=== PATIENT | female | born 1955 | race Caucasian/White ===

== ENCOUNTER 2024-04-10 11:19 | Emergency (ER) | payer OTHER, SELFPAY ==
[2024-04-10 11:30] VITALS: BP 154/90; PULSE 80; RESP 18; TEMP 36.4; O2SAT 97; BMI 51.0
--- NOTE | 2024-04-10 11:39 | ED.BACK ---
HPI - Back Pain/Injury <Monique Mcconnell PA-C - Last Filed: 04/10/24 15:08> General Chief Complaint: Back Pain/Injury Stated Complaint: Chronic Lower R Back/Side Pain Time Seen by Provider: 04/10/24 11:39 Source: patient History of Present Illness HPI Narrative: Ms. Bryant is a pleasant 68-year-old female with a past medical history of cholecystectomy, hypertension, insomnia, chronic low back pain who presents to the emergency department for right flank pain x3 days. Patient is accompanied by her daughter who contributes to the history. Reports that about 3 days ago she started developing sharp, stabbing sudden pain in her right flank occasionally wrapping around the abdomen. States pain is not quite as severe as her prior gallbladder pain but is almost that bad. Reports that she chronically does have low back pain worse on the right side but this pain is much more severe. No injuries. Denies any associated symptoms of chest pain, shortness of breath, fevers, chills, vomiting, dysuria, hematuria. Denies history of any kidney problems or kidney stones. States that she does have slight constipation and gassiness. She took naproxen and Flexeril which normally helps her pain but it did not help this time. While the patient was driving to the ER from [facility], her daughter had the seat warmers on in the car which significantly improved her pain and his gone from a 7/10 to a 2/10. She is also concerned for a possible small lump/abscess on her right upper quadrant of her abdomen that has been there for many months. The only medication she took prior to arrival today was her blood pressure medicine. Related Data Home Medications Medication Instructions Recorded Confirmed Ranitidine Hydrochloride 150 mg PO BID ##0 10/19/12 (RANITIDINE) alprazolam 0.5 mg tablet (Xanax) ##0 10/19/12 CALCIUM CARBONATE (TUMS ) 500 mg PO PRN ##0 10/20/12 OXYMETAZOLINE HCL (Dristan) 1 spray intranasal TID ##0 10/20/12 [MULTI VITAMIN ] 1 tab PO QDAY ##0 10/20/12 albuterol sulfate 90 mcg/actuation 1 puff INH PRN ##0 10/20/12 aerosol inhaler (Proventil HFA) Previous Rx's Medication Instructions Recorded albuterol sulfate 90 mcg/actuation 1 inh inhalation QID PRN shortness 04/10/24 aerosol inhaler of breath or wheezing #6.7 grams Allergies Allergy/AdvReac Type Severity Reaction Status Date / Time pork derived (porcine) AdvReac Mild Nausea Verified 04/10/24 11:35 Review of Systems <Monique Mcconnell PA-C - Last Filed: 04/10/24 15:08> Review of Systems ROS Unobtainable: All systems reviewed & are unremarkable except as noted in HPI and below Patient History <Monique Mcconnell PA-C - Last Filed: 04/10/24 15:08> Social History Smoking Status: Never smoker Smoking Status: Never smoker Exam <Monique Mcconnell PA-C - Last Filed: 04/10/24 15:08> Narrative Exam Narrative: GENERAL: 68 year old patient appears stated age. Obese patient, in no acute distress. HEAD: Atraumatic. Normocephalic. NECK: Trachea midline. Cervical ROM intact. CARDIOVASCULAR: Regular rate and rhythm. RESPIRATORY: ?Nonlabored respirations. ?Speaking in clear, full sentences. ?Clear to auscultation. Breath sounds equal bilaterally. No wheezes, rales, or rhonchi. ? GASTROINTESTINAL: Abdomen protuberant soft, nontender, normal bowel sounds, no rebound or guarding. Prior cholecystectomy scars. Patient reports sensation of lump in right upper quadrant of abdomen. BACK: No midline spinal tenderness. No CVA tenderness or reproducible pain. However subjective pain is located in right CVA region wrapping to groin. NEURO: AOx3. ?Clear speech. ?Moves all 4 extremities appropriately. SKIN: No rash or erythema of visible areas Initial Vital Signs Initial Vital Signs: Vital Signs Temperature 97.6 F 04/10/24 11:30 Pulse Rate 80 04/10/24 11:30 Respiratory Rate 18 04/10/24 11:30 Blood Pressure 154/90 H 04/10/24 11:30 Pulse Oximetry 97 04/10/24 11:30 Oxygen Delivery Method Room Air 04/10/24 11:30 <Naima Rosado MD - Last Filed: 04/10/24 18:25> Initial Vital Signs Initial Vital Signs: Vital Signs Temperature 97.6 F 04/10/24 11:30 Pulse Rate 80 04/10/24 11:30 Respiratory Rate 18 04/10/24 11:30 Blood Pressure 154/90 H 04/10/24 11:30 Pulse Oximetry 97 04/10/24 11:30 Oxygen Delivery Method Room Air 04/10/24 11:30 Course <Monique Mcconnell PA-C - Last Filed: 04/10/24 15:08> Orders Ordered: ED Orders 04/10/24 12:03 CT abdomen pelvis wo con Stat 04/10/24 12:16 Complete Blood Count AUTO DIFF Stat Comprehensive Metabolic Panel Stat Lipase Stat 04/10/24 12:34 Urine Microscopic Stat Discontinued Medications Acetaminophen (Acetaminophen 325 Mg Tablet) 650 mg PO NOW ONE Stop: 04/10/24 12:04 Last Admin: 04/10/24 12:26 Dose: 650 mg Documented By: KARMEN Ketorolac Tromethamine (Ketorolac 30 Mg/Ml Vial) 15 mg IV NOW ONE Stop: 04/10/24 12:04 Last Admin: 04/10/24 12:26 Dose: 15 mg Documented By: KARMEN Vital Signs Vital signs: Vital Signs - 8 hr 04/10/24 11:30 04/10/24 13:58 Temperature 97.6 F Pulse Rate 80 78 Respiratory Rate 18 20 Blood Pressure 154/90 H 178/94 H Pulse Oximetry 97 98 Oxygen Delivery Method Room Air Room Air <Naima Rosado MD - Last Filed: 04/10/24 18:25> Orders Ordered: ED Orders 04/10/24 12:03 CT abdomen pelvis wo con Stat 04/10/24 12:16 Complete Blood Count AUTO DIFF Stat Comprehensive Metabolic Panel Stat Lipase Stat 04/10/24 12:34 Urine Microscopic Stat Discontinued Medications Acetaminophen (Acetaminophen 325 Mg Tablet) 650 mg PO NOW ONE Stop: 04/10/24 12:04 Last Admin: 04/10/24 12:26 Dose: 650 mg Documented By: KARMEN Ketorolac Tromethamine (Ketorolac 30 Mg/Ml Vial) 15 mg IV NOW ONE Stop: 04/10/24 12:04 Last Admin: 04/10/24 12:26 Dose: 15 mg Documented By: KARMEN Vital Signs Vital signs: Vital Signs - 8 hr 04/10/24 11:30 04/10/24 13:58 Temperature 97.6 F Pulse Rate 80 78 Respiratory Rate 18 20 Blood Pressure 154/90 H 178/94 H Pulse Oximetry 97 98 Oxygen Delivery Method Room Air Room Air MDM - Back Pain/Injury <Monique Mcconnell PA-C - Last Filed: 04/10/24 15:08> Medical Records Attestation: I reviewed the patient's medical records. Lab Data 04/10/24 12:16 04/10/24 12:16 Labs: Lab Results 04/10/24 04/10/24 Range/Units 12:16 12:34 WBC 7.4 (4.5-11.0) X10^3/uL RBC 4.97 (4.0-5.2) X10^6/uL Hgb 14.3 (12.0-16.0) g/dL Hct 42.5 (36-46) % MCV 85.5 (80-100) fL MCH 28.8 (26-34) PG MCHC 33.7 (30-36) % RDW 14.0 (11.6-14.8) % Plt Count 415 H (150-400) X10^3/uL Neut % (Auto) 57.2 (50-75) % Lymph % (Auto) 31.5 (25-40) % [place] % (Auto) 6.7 (3-14) % Eos % (Auto) 3.4 (2-4) % Baso % (Auto) 1.2 (0-2) % Neut # (Auto) 4200 (3724-0195) /uL Lymph # (Auto) 2300 (3984-6672) /uL [place] # (Auto) 500 (0-900) /uL Eos # (Auto) 300 (0-450) /uL Baso # (Auto) 100 (0-100) /uL Sodium 136 L (137-145) mmol/L Potassium 4.4 (3.4-5.1) mmol/L Chloride 104 (98-107) mmol/L Carbon Dioxide 28 (22-32) mmol/L BUN 15 (7-17) mg/dL Creatinine 0.75 (0.52-1.04) mg/dL Estimated GFR > 60 (>60) mL/min BUN/Creatinine Ratio 20.0 (6-22) Glucose 119 H (80-110) mg/dL Calcium 8.9 (8.4-10.2) mg/dL Total Bilirubin 0.7 (0.2-1.3) mg/dL AST 34 (14-36) IU/L ALT 30 (<35) IU/L Alkaline Phosphatase 91 (38-126) U/L Total Protein 7.7 (6.3-8.2) g/dL Albumin 4.2 (3.5-5.0) g/dL Globulin 3.5 (1.7-4.1) g/dL Albumin/Globulin Ratio 1.2 (1.0-2.8) Lipase 58 (23-300) U/L Urine RBC 0-1/hpf (0-5/HPF) Urine WBC None seen (0-5/HPF) Ur Squamous Epith Cells 0-1 /hpf (0-5/HPF) Urine Bacteria None seen (None) Ur Culture Indicated? Cult not indicated Vol Urine Centrifuged 10ml (spun) Urine Dip Bedside Urine Glucose Negative Bedside Urine Bilirubin - Negative Bedside Urine Ketone - Negative Urine Specific [place] 1.005 Bedside Urine Occult Blood +/- Bedside Urine pH 6.5 Bedside Urine Protein - Negative Bedside Urine Urobilinogen - Negative Bedside Urine Nitrite - Negative Bedside Urine Leukocytes - Negative Esterase Imaging Data CT scan - abdomen/pelvis: Radiologist's Impression: PROCEDURE: CT ABDOMEN PELVIS WO CON INDICATIONS: Right flank pain; hx cholecystectomy; chronic back pain TECHNIQUE: Axial sections were acquired from the lung bases to the pubic symphysis. Coronal and sagittal reformats were performed. For radiation dose reduction, the following was used: automated exposure control, adjustment of mA and/or kV according to patient size. COMPARISON: None. FINDINGS: Image quality: Diagnostic. Lower Chest: There is bibasilar interlobular septal thickening, ground-glass opacity, and reticulation, left greater than right. There is a small hiatal hernia. URINARY: Right Kidney: No stones or hydronephrosis. Right Ureter: No hydroureter. Left Kidney: No stones or hydronephrosis. Left Ureter: No hydroureter. Bladder: Normal wall thickness. No stones. ABDOMEN: Liver: No contour-deforming solid mass. Gallbladder: Surgically absent. Biliary ducts: No biliary dilation. Pancreas: No ductal dilation. Spleen: Size is within normal limits. Adrenal Glands: No adrenal nodules. Stomach and Bowel: Normal colonic caliber, without significant wall thickening. Peritoneum: No abnormal intraperitoneal fluid. No free air. Ventral Wall: No hernia. Abdominal Nodes: No enlarged retroperitoneal or mesenteric lymph nodes. Vessels: Aorta and inferior vena cava are normal in size. PELVIS: Pelvic Organs: Calcified uterine fibroids are present. Otherwise unremarkable. Pelvic Nodes: Unremarkable. Miscellaneous: No inguinal hernias are seen. The symptom marker at the right upper quadrant overlies the costochondral junction. There is no mass or other abnormality in this area. Bones: Mild degenerative changes of the spine are present. IMPRESSION: No obstructing stones or hydronephrosis. No other CT evidence for the etiology of the patient's symptoms. [facility] Narrative Medical decision making narrative: 68-year-old female with a past medical history of cholecystectomy, hypertension, insomnia, chronic low back pain who presents to the emergency department for right flank pain x3 days. Daughter contributes to history. Differential diagnosis includes but is not limited to nephrolithiasis, ureterolithiasis, UTI, muscle spasm, muscle strain, lumbar degenerative disc disease, etc. On exam patient is in no acute distress, nontoxic appearing, vital signs within normal limits except for mildly elevated BP 154/90. Patient reports 3 days of severe right flank pain wrapping to groin that only just improved after sitting in long car ride with heat warmer on. Physical exam reveals no reproducible abdominal or flank tenderness but subjective flank tenderness. We will proceed with labs to check kidney and liver function in addition to CT abdomen and pelvis without IV contrast to evaluate for possible stone. We will check UA. We will treat pain with Toradol this time. Labs overall reassuring with WBC count 7.4, hemoglobin 14.3, hematocrit 42.5. Platelet count slightly elevated at 415. Sodium 136, glucose 119, normal renal function, potassium 4.4, normal LFTs. Point of care UA negative for infection. Lipase normal 58. CT scan reveals no obstructing stones or hydronephrosis, no other CT evidence for the etiology of the patient's symptoms. Incidental findings of mild degenerative changes of the spine, calcified uterine fibroids, small hiatal hernia,, bibasilar interlobular septal thickening, ground-glass opacity and reticulation left greater than right. Discussed all lab and imaging findings with the patient including all incidental findings, provided patient with printed copy of her CT report. Discussed the importance of PCP follow up specifically regarding changes in the bases of the lungs, patient reports in 2019 she was sick with what she thinks was COVID and has had what she believes is asthma ever since then. Discussed the possibilities of interstitial lung disease, CHF. She has having no cough, fever, flu symptoms, no concern for pneumonia. Patient is asking for a refill of her albuterol inhaler though which I am agreeable to. Overall patient has pain most consistent with musculoskeletal, likely paralumbar muscle spasm as heat therapy relieves pain. We discussed naproxen, acetaminophen, Lidoderm, cyclobenzaprine, heat therapy, gentle stretching. She is all of these prescriptions at home and is not interested in any new prescriptions for her pain. Advised follow up with her PCP early next week and we discussed ER return precautions. Both the patient and her daughter verbalized understanding of all information and are happy with the plan, she is stable for discharge home. <Naima Rosado MD - Last Filed: 04/10/24 18:25> Lab Data Labs: Lab Results 04/10/24 04/10/24 Range/Units 12:16 12:34 WBC 7.4 (4.5-11.0) X10^3/uL RBC 4.97 (4.0-5.2) X10^6/uL Hgb 14.3 (12.0-16.0) g/dL Hct 42.5 (36-46) % MCV 85.5 (80-100) fL MCH 28.8 (26-34) PG MCHC 33.7 (30-36) % RDW 14.0 (11.6-14.8) % Plt Count 415 H (150-400) X10^3/uL Neut % (Auto) 57.2 (50-75) % Lymph % (Auto) 31.5 (25-40) % [place] % (Auto) 6.7 (3-14) % Eos % (Auto) 3.4 (2-4) % Baso % (Auto) 1.2 (0-2) % Neut # (Auto) 4200 (9192-1744) /uL Lymph # (Auto) 2300 (1470-3932) /uL [place] # (Auto) 500 (0-900) /uL Eos # (Auto) 300 (0-450) /uL Baso # (Auto) 100 (0-100) /uL Sodium 136 L (137-145) mmol/L Potassium 4.4 (3.4-5.1) mmol/L Chloride 104 (98-107) mmol/L Carbon Dioxide 28 (22-32) mmol/L BUN 15 (7-17) mg/dL Creatinine 0.75 (0.52-1.04) mg/dL Estimated GFR > 60 (>60) mL/min BUN/Creatinine Ratio 20.0 (6-22) Glucose 119 H (80-110) mg/dL Calcium 8.9 (8.4-10.2) mg/dL Total Bilirubin 0.7 (0.2-1.3) mg/dL AST 34 (14-36) IU/L ALT 30 (<35) IU/L Alkaline Phosphatase 91 (38-126) U/L Total Protein 7.7 (6.3-8.2) g/dL Albumin 4.2 (3.5-5.0) g/dL Globulin 3.5 (1.7-4.1) g/dL Albumin/Globulin Ratio 1.2 (1.0-2.8) Lipase 58 (23-300) U/L Urine RBC 0-1/hpf (0-5/HPF) Urine WBC None seen (0-5/HPF) Ur Squamous Epith Cells 0-1 /hpf (0-5/HPF) Urine Bacteria None seen (None) Ur Culture Indicated? Cult not indicated Vol Urine Centrifuged 10ml (spun) Urine Dip Bedside Urine Glucose Negative Bedside Urine Bilirubin - Negative Bedside Urine Ketone - Negative Urine Specific [place] 1.005 Bedside Urine Occult Blood +/- Bedside Urine pH 6.5 Bedside Urine Protein - Negative Bedside Urine Urobilinogen - Negative Bedside Urine Nitrite - Negative Bedside Urine Leukocytes - Negative Esterase Discharge Plan Departure Patient Disposition: Home Clinical Impression: Hernia, hiatal Strain of lumbar region Qualifiers: Encounter type: initial encounter Qualified Code(s): S39.012A - Strain of muscle, fascia and tendon of lower back, initial encounter DDD (degenerative disc disease), lumbar Qualifiers: Disc-related pain type: discogenic back pain only Qualified Code(s): M51.360 - Other intervertebral disc degeneration, lumbar region with discogenic back pain only Instructions: DI for Low Back Pain Activity Restrictions/Additional Instructions: Dear Ms. Bryant, Your diagnosis today is right paralumbar spinal muscle strain/spasm. We obtained a CBC, CMP, lipase, urine test and a CT scan of your abdomen and pelvis. Your lab work and urine test were overall very reassuring. The CT scan of your abdomen and pelvis revealed mild degenerative changes of the spine, a small hiatal hernia, calcified uterine fibroids, and some congestion in the bases of both of your lungs. There was no kidney stone or problem with your kidneys on imaging. It is very important to follow up with your primary care doctor for further evaluation of your right low back pain in addition to further evaluation of the incidental findings on imaging, especially the chronic changes in your lungs. Please take naproxen 500 mg twice a day with food. Please also take acetaminophen/Tylenol 650 mg every 4-6 hours or 1000 mg every 8 hours. Continue to use the cyclobenzaprine if needed as prescribed. You may also use topical lidocaine patches directly on the area of pain. Use heat therapy or warm compress throughout the day to help loosen up the muscles and do gentle stretching. Avoid sitting or lying still for a prolonged period of time, avoid heavy lifting. If you develop chest pain, difficulty breathing, fevers, chills, bloody urine, severe abdominal pain vomiting or any other concerns return to the ER immediately. Please follow up with your primary care doctor within the next 2-3 days for ER follow-up. (If you do not have a PCP you can call [phone]. ?to schedule an appointment with an [facility] Primary Care Provider) IF YOU DEVELOP ANY NEW OR WORSENING SYMPTOMS, RETURN TO THE ER! Please read the attached instructions, they highlight more specific treatments and interventions for you at home. Thank you for letting me participate in your care, Monique Mcconnell PA-C Prescriptions: New albuterol sulfate 90 mcg/actuation HFA aerosol inhaler 1 inh inhalation QID PRN (Reason: shortness of breath or wheezing) Qty: 6.7 0RF No Action alprazolam [Xanax] 0.5 MG tablet Qty: 0 Ranitidine Hydrochloride (RANITIDINE) 150 mg PO BID Qty: 0 [MULTI VITAMIN ] 1 tab PO QDAY Qty: 0 CALCIUM CARBONATE (TUMS ) 500 mg PO PRN Qty: 0 OXYMETAZOLINE HCL (Dristan) 1 spray Intranasal TID Qty: 0 albuterol sulfate [Proventil HFA] 90 MCG/PUFF HFA aerosol inhaler 1 puff INH PRN Qty: 0 Referrals: Radha Goodrich MD [Primary Care Provider] - Stand Alone Forms: Patient Portal/API/Survey ED Sign-out <Naima Rosado MD - Last Filed: 04/10/24 18:25> Cosign ED Attending Cosheidiature Attestation: I was immediately available in the department for consultation throughout this patient's visit. Naima Rosado MD
--- NOTE | 2024-04-10 12:03 | DI.CT.S_ITS ---
PROCEDURE: CT ABDOMEN PELVIS WO CON INDICATIONS: Right flank pain; hx cholecystectomy; chronic back pain TECHNIQUE: Axial sections were acquired from the lung bases to the pubic symphysis. Coronal and sagittal reformats were performed. For radiation dose reduction, the following was used: automated exposure control, adjustment of mA and/or kV according to patient size. COMPARISON: None. FINDINGS: Image quality: Diagnostic. Lower Chest: There is bibasilar interlobular septal thickening, ground-glass opacity, and reticulation, left greater than right. There is a small hiatal hernia. URINARY: Right Kidney: No stones or hydronephrosis. Right Ureter: No hydroureter. Left Kidney: No stones or hydronephrosis. Left Ureter: No hydroureter. Bladder: Normal wall thickness. No stones. ABDOMEN: Liver: No contour-deforming solid mass. Gallbladder: Surgically absent. Biliary ducts: No biliary dilation. Pancreas: No ductal dilation. Spleen: Size is within normal limits. Adrenal Glands: No adrenal nodules. Stomach and Bowel: Normal colonic caliber, without significant wall thickening. Peritoneum: No abnormal intraperitoneal fluid. No free air. Ventral Wall: No hernia. Abdominal Nodes: No enlarged retroperitoneal or mesenteric lymph nodes. Vessels: Aorta and inferior vena cava are normal in size. PELVIS: Pelvic Organs: Calcified uterine fibroids are present. Otherwise unremarkable. Pelvic Nodes: Unremarkable. Miscellaneous: No inguinal hernias are seen. The symptom marker at the right upper quadrant overlies the costochondral junction. There is no mass or other abnormality in this area. Bones: Mild degenerative changes of the spine are present. IMPRESSION: No obstructing stones or hydronephrosis. No other CT evidence for the etiology of the patient's symptoms. Dictated by: Mariela Abebe M.D. on 04/10/2024 at 11:59 Approved by: Mariela Abebe M.D. on 04/10/2024 at 12:03
[2024-04-10 12:26] LABS: Add Manual Diff / Slide Review NO; Basophils Absolute Auto 100 /uL (0-100); Basophils Percent Auto 1.2 % (0-2); Eosinophils Absolute Auto 300 /uL (0-450); Eosinophils Percent Auto 3.4 % (2-4); Hematocrit 42.5 % (36-46); Hemoglobin 14.3 g/dL (12.0-16.0); Lymphocytes Absolute Auto 2300 /uL (1100-4500); Lymphocytes Percent Auto 31.5 % (25-40); Mean Corpuscular HGB Conc 33.7 % (30-36); Mean Corpuscular Hemoglobin 28.8 PG (26-34); Mean Corpuscular Volume 85.5 fL (80-100); Monocytes Absolute Auto 500 /uL (0-900); Monocytes Percent Auto 6.7 % (3-14); Neutrophils Absolute Auto 4200 /uL (1500-7000); Neutrophils Percent Auto 57.2 % (50-75); Platelet Count 415 X10^3/uL (150-400); Red Blood Cell Count 4.97 X10^6/uL (4.0-5.2); White Blood Cell Count 7.4 X10^3/uL (4.5-11.0)
[2024-04-10] MEDS: KETOROLAC 30 MG/ML VIAL 15 MG IV (12:26)
[2024-04-10] MEDS: ACETAMINOPHEN 325 MG TABLET 650 MG PO (12:26)
[2024-04-10 12:42] LABS: Alanine Aminotransferase 30 IU/L (<35); Albumin 4.2 g/dL (3.5-5.0); Albumin Globulin Ratio 1.2 (1.0-2.8); Alkaline Phosphatase 91 U/L (38-126); Aspartate Aminotransferase 34 IU/L (14-36); Bilirubin Total 0.7 mg/dL (0.2-1.3); Blood Urea Nitrogen 15 mg/dL (7-17); Calcium 8.9 mg/dL (8.4-10.2); Carbon Dioxide 28 mmol/L (22-32); Chloride 104 mmol/L (98-107); Estimated Glomerular Filt Rate > 60 mL/min (>60); Globulin 3.5 g/dL (1.7-4.1); Glucose 119 mg/dL (80-110); HEMOLYSIS 43 (0-50); Lipase 58 U/L (23-300); Potassium 4.4 mmol/L (3.4-5.1); Sodium 136 mmol/L (137-145); Total Protein 7.7 g/dL (6.3-8.2)
[2024-04-10 13:58] VITALS: BP 178/94; PULSE 78; RESP 20; O2SAT 98
[2024-04-10 14:05] LABS: Bacteria Urine None Seen; Culture Indicated Urine Cult Not Indicated; RBC Urine 0-1/HPF (0-5/HPF); Squamous Epithelial Cell Urine 0-1 /HPF (0-5/HPF); Urine Volume 10mL (spun); WBC Urine None Seen (0-5/HPF)
== END 2024-04-10 13:56 | disposition home or self-care (01) ==
PROVIDERS: Emergency Provider Physician Assistant; Family Provider Internal Medicine; PCP Internal Medicine
DX: K44.9 Diaphragmatic hernia without obstruction or gangrene (principal); S39.012A Strain of muscle, fascia and tendon of lower back, initial encounter; M51.360 Other intervertebral disc degeneration, lumbar region with discogenic back pain only
CPT/HCPCS: 74176; 80053; 81003; 81015; 83690; 85025; 96374; 99284; J1885